=== PATIENT | female | born 1995 | race African-American/Black ===

== ENCOUNTER 2021-12-23 20:47 | Emergency (ER) | payer MEDICAID, SELFPAY ==
[2021-12-23 20:51] VITALS: BP 95/54; PULSE 84; RESP 24; TEMP 36.7; O2SAT 100; BMI 46.5
== END 2021-12-23 22:45 | disposition left against medical advice (07) ==
PROVIDERS: Emergency Provider Emergency Medicine
DX: T78.40XA Allergy, unspecified, initial encounter (principal); R06.02 Shortness of breath; X58.XXXA Exposure to other specified factors, initial encounter
CPT/HCPCS: 99281